=== PATIENT | male | born 1980 ===

== ENCOUNTER 2019-02-20 13:46 | Emergency (ER) | payer OTHER ==
[2019-02-20 14:29] VITALS: TEMP 98.4; O2SAT 98
--- NOTE | 2019-02-20 15:20 | ED PDOC ---
HPI: CCC, URI, Sore Throat Time Seen by Provider: 02/20/19 14:33 Chief Complaint (Nursing): Cough, Cold, Congestion Chief Complaint (Provider): Cough History Per: Patient History/Exam Limitations: no limitations Have you had recent travel within the past 21 days to any of the following countries: [place], [place], [place] or [place]?: No Onset/Duration Of Symptoms: Days (4) Current Symptoms Are (Timing): Still Present Associated Symptoms: Cough, Sputum Additional History Per: Patient Additional Complaint(s): 38yo male with history of HIV, non-compliant with medications x 2 months as he is in between clinics, comes to ER reporting productive cough x 4 days. Patient states he has [facility] in the [facility] the past month and has had many sick contacts; "everyone there is coughing." He also reports associated headache. Otherwise, he denies any fever, chest pain, shortness of breath or other complaints. NO medications taken for his symptoms. PMD: [facility] Past Medical History Reviewed: Historical Data, Nursing Documentation, Vital Signs Vital Signs: Last Vital Signs Temp 98.4 F 02/20/19 14:26 Pulse 94 H 02/20/19 14:26 Resp 17 02/20/19 14:26 BP 115/70 02/20/19 14:26 Pulse Ox 98 02/20/19 14:26 Primary Care Provider: FAMILY PROVIDER,NO - Medical History PMH: HIV - Surgical History Surgical History: No Surg Hx - Family History Family History: States: No Known Family Hx - Home Medications Home Medications: Ambulatory Orders Medication Instructions Recorded Azithromycin [Zithromax] 250 mg PO DAILY #6 tab 02/20/19 - Allergies Allergies/Adverse Reactions: Allergies Allergy/AdvReac Type Severity Reaction Status Date / Time No Known Allergies Allergy Verified 02/20/19 14:26 Review of Systems ROS Statement: Except As Marked, All Systems Reviewed And Found Negative Constitutional: Positive for: Malaise. Negative for: Fever, Chills Cardiovascular: Negative for: Chest Pain Respiratory: Positive for: Cough, Sputum. Negative for: Shortness of Breath Neurological: Positive for: Headache Physical Exam - Reviewed Nursing Documentation Reviewed: Yes Vital Signs Reviewed: Yes - Physical Exam Appears: Positive for: Non-toxic, No Acute Distress Head Exam: Positive for: ATRAUMATIC, NORMAL INSPECTION, NORMOCEPHALIC Skin: Positive for: Normal Color Eye Exam: Positive for: Normal appearance, EOMI, PERRL ENT: Negative for: Pharyngeal Erythema, Tonsillar Exudate, Tonsillar Swelling Neck: Positive for: Supple Cardiovascular/Chest: Positive for: Regular Rate, Rhythm Respiratory: Positive for: Normal Breath Sounds. Negative for: Rales, Rhonchi, Wheezing Neurological/Psych: Positive for: Awake, Alert, Normal Tone - Laboratory Results Result Diagrams: 02/20/19 15:15 02/20/19 15:15 - ECG O2 Sat by Pulse Oximetry: 98 (RA) Pulse Ox Interpretation: Normal Medical Decision Making Medical Decision Making: Impression: Cough x 4 days Concern for opportunistic infection due to hx of HIV Plan: -- Labs -- CXR 1613 CXR FINDINGS: LUNGS: Questionable subcentimeter pulmonary nodule right upper lobe. The finding is marked on the study for review. PLEURA: No significant pleural effusion identified. No pneumothorax apparent. CARDIOVASCULAR: No aortic atherosclerotic calcification present. No radiographic findings to suggest acute or significant cardiovascular disease. OSSEOUS STRUCTURES: No significant abnormalities. VISUALIZED UPPER ABDOMEN: Normal. OTHER FINDINGS: None. IMPRESSION: Questionable pulmonary nodule right upper lobe. Follow-up recommended. Initially, repeat chest x-ray with oblique radiographs. CT can also be performed. CT Chest ordered 1800 CT Chest FINDINGS: LUNGS: Confirmation of nodule/infiltrate identified in the superior segment right lower lobe 9 x 16 mm. Please refer to axial series 3/image 38. Coronal series 601/image 86. on the sagittal images this appears to be pleural based reference sagittal series 602/image 55. MEDIASTINUM: Unremarkable thoracic aorta. No aneurysm. Normal sized heart. Main pulmonary artery unremarkable. No vascular congestion. No lymphadenopathy. No aortic atherosclerotic calcification. PLEURA: No pleural fluid. No pneumothorax. BONES: No fracture. No destructive lesion. UPPER ABDOMEN: Mild splenomegaly. Nonobstructing bilateral renal calculi incompletely visualized none that are seen measure greater than 3 mm. OTHER FINDINGS: None. IMPRESSION: Peripheral parenchymal pleural based mass/infiltrate superior segment right lower lobe. Follow-up to resolution recommended. Additional benign and/or incidental findings described above. This includes mild splenomegaly and bilateral nonobstructing renal calculi. Scribe Attestation: Documented by Carlyn James, acting as a scribe for LINO Sauceda Provider Scribe Attestation: All medical record entries made by the Scribe were at my direction and personally dictated by me. I have reviewed the chart and agree that the record accurately reflects my personal performance of the history, physical exam, medical decision making, and the department course for this patient. I have also personally directed, reviewed, and agree with the discharge instructions and disposition. Disposition - Clinical Impression Clinical Impression: Medication refill, Acute bronchitis - Disposition Disposition: Routine/Home Disposition Time: 18:11 Condition: GOOD Prescriptions: Azithromycin [Zithromax] 250 mg PO DAILY #6 tab Instructions: Acute Bronchitis Forms: [employer] (Japanese)
[2019-02-20 16:03] LABS: BASO % 0.3 % (0.0-2.0); EOS # 0.1 K/uL (0.0-0.7); EOS % 1.8 % (0.0-4.0); LYMPH # 1.4 K/uL (1.0-4.3); LYMPH % 22.8 % (20.0-40.0); MEAN CELL VOLUME 89.1 fl (80.0-94.0); MEAN CORPUSCULAR HGB CONC 33.6 g/dL (33.0-37.0); MEAN PLATELET VOLUME 8.1 fl (7.2-11.7); MONO # 0.7 K/uL (0.0-0.8); MONO % 11.9 % (0.0-10.0); NEUT # 3.8 K/uL (1.8-7.0); NEUT % 63.2 % (50.0-75.0); NRBC % 0.2 % (0.0-0.0); RBC 4.33 Mil/uL (4.40-5.90); RED CELL DISTRIBUTION WIDTH 14.6 % (11.5-14.5)
--- NOTE | 2019-02-20 16:10 | RAD ---
Date of service: 02/20/2019 HISTORY: cough, hx hiv COMPARISON: No prior. TECHNIQUE: Chest PA and lateral views FINDINGS: LUNGS: Questionable subcentimeter pulmonary nodule right upper lobe. The finding is marked on the study for review. PLEURA: No significant pleural effusion identified. No pneumothorax apparent. CARDIOVASCULAR: No aortic atherosclerotic calcification present. No radiographic findings to suggest acute or significant cardiovascular disease. OSSEOUS STRUCTURES: No significant abnormalities. VISUALIZED UPPER ABDOMEN: Normal. OTHER FINDINGS: None. IMPRESSION: Questionable pulmonary nodule right upper lobe. Follow-up recommended. Initially, repeat chest x-ray with oblique radiographs. CT can also be performed.
[2019-02-20 16:13] LABS: ALB/GLOB RATIO 1.1 (1.0-2.1); ALBUMIN 4.4 g/dL (3.5-5.0); ALT/SGPT 84 U/L (21-72); AST/SGOT 79 U/L (17-59); BLOOD UREA NITROGEN 13 mg/dl (9-20); CALCIUM 9.3 mg/dL (8.4-10.2); GFR NON-AFRICAN AMERICAN > 60
--- NOTE | 2019-02-20 17:32 | CT ---
Date of service: 02/20/2019 PROCEDURE: CT Chest without contrast HISTORY: nodule COMPARISON: None available. TECHNIQUE: Contiguous axial images were obtained through the chest without intravenous contrast enhancement. Sagittal and coronal reconstructions were performed. Radiation dose: Total exam DLP = 300.7 mGy-cm. This CT exam was performed using one or more of the following dose reduction techniques: Automated exposure control, adjustment of the mA and/or kV according to patient size, and/or use of iterative reconstruction technique. FINDINGS: LUNGS: Confirmation of nodule/infiltrate identified in the superior segment right lower lobe 9 x 16 mm. Please refer to axial series 3/image 38. Coronal series 601/image 86. on the sagittal images this appears to be pleural based reference sagittal series 602/image 55. MEDIASTINUM: Unremarkable thoracic aorta. No aneurysm. Normal sized heart. Main pulmonary artery unremarkable. No vascular congestion. No lymphadenopathy. No aortic atherosclerotic calcification. PLEURA: No pleural fluid. No pneumothorax. BONES: No fracture. No destructive lesion. UPPER ABDOMEN: Mild splenomegaly. Nonobstructing bilateral renal calculi incompletely visualized none that are seen measure greater than 3 mm. OTHER FINDINGS: None. IMPRESSION: Peripheral parenchymal pleural based mass/infiltrate superior segment right lower lobe. Follow-up to resolution recommended. Additional benign and/or incidental findings described above. This includes mild splenomegaly and bilateral nonobstructing renal calculi.
[2019-02-20 18:29] VITALS: BP 116/78; PULSE 82; RESP 18
== END 2019-02-20 18:29 | disposition home or self-care (01) ==
LOC: H.ER 13:46
DX: J20.9 Acute bronchitis, unspecified (principal); Z76.0 Encounter for issue of repeat prescription; N20.0 Calculus of kidney